=== PATIENT | female | born 1985 | race Caucasian/White ===

== ENCOUNTER → 2021-12-15 | Outpatient (CLI) | payer BC ==
--- NOTE | 2021-12-15 16:36 | RAD ---
Exam performed: 3 views right ankle. HISTORY: Right ankle pain. DATE OF SERVICE: 12/15/2021. COMPARISON: None available FINDINGS: AP, lateral and oblique views of the normal alignment is preserved. There is no acute fracture or dis location. Is diffuse soft tissue swelling. No foreign body. IMPRESSION: Diffuse soft tissue swelling about the right ankle. No underlying bony abnormality seen. Electronically signed by: Belinda Ireland MD (12/15/2021 4:34 PM) [facility]
== END ==
LOC: PMG 16:02
PROVIDERS: ATTEND Physician Assistant
DX: S83.91XA Sprain of unspecified site of right knee, initial encounter (principal); M79.89 Other specified soft tissue disorders; X58.XXXA Exposure to other specified factors, initial encounter; Y93.89 Activity, other specified; Y92.89 Other specified places as the place of occurrence of the external cause; Y99.8 Other external cause status
CPT/HCPCS: 73610